=== PATIENT | male | born 1990 | race Caucasian/White ===

== ENCOUNTER 2024-02-01 10:15 | Outpatient (AMB) | payer MEDICAID, SELFPAY ==
--- NOTE | 2024-02-01 10:32 | ORTHONT_ITS ---
Vital signs 02/01/24 10:33 Height 1.8 m Height Method Stated Weight 78.528 kg Weight Measurement Method Standing Scale BMI 24.2 BP 124/72 Blood Pressure Source Automatic Cuff Blood Pressure Location Right Upper Arm Position Sitting Respiration 18 Pulse 54 L Pulse Source Monitor Temp 98.0 F Temp Source Temporal Artery Scan Pulse Oximetry (%) 98 Oxygen Delivery Method Room Air Med/Allergies Allergies & Medications Allergies No Known Drug Allergies Allergy (Verified 02/01/24 10:33) Medication Reconciliation cyclobenzaprine 10 mg tablet 10 mg PO HS 10/22/23 [History Confirmed 02/01/24] Subjective Visit Visit for: follow up visit and MRI (MRI RESULTS) Immunization / Flu Flu Vaccine in the Last 12 Months: No Flu Vaccine Exclusion Criteria: Refused by Patient History of Present Illness Chief complaint: MRI RESULTS FOLLOW UP Patient is a 33-year-old male who has had a left hip and knee and tibia pain. This has been ongoing for several years. He did have a broken tibia approximately 5 years ago That was fixed in the [facility]. He reports a lot of knee pain and points at the joint line as well as over the mid tibial incision. 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 He did not need any surgery Personal History Red flag PMH: other (specify) (CANABIS) Pain Pain level (0-10): 0 Pain duration: ALL DAY Pain location: inside (medial) Pain quality: sharp, aching and burning Pain timing: night, increases with activity and stairs Associated signs & symptoms: stiffness Ambulatory data Ambulatory device: none Treatments Improvement with previous injections: No Improvement with PT: No Improvement with NSAIDS: no Review of Systems Review of Systems: All systems negative unless otherwise noted in HPI. Exam Exam Patient is in no acute distress and is cooperative with the examination today. Patient has a normal mood and affect. Breathing is nonlabored. In no respiratory distress. Bilateral extremities were evaluated and demonstrates sensation intact to light touch. Palpable pedal pulses are present. No significant edema is present. Left hip demonstrates flexion 90 degrees internal rotation 20 to 30 degrees respectively. He has pain with internal rotation Left knee demonstrates tenderness palpation medially and laterally at the joint line. He is also tender to palpation over the mid tibial incision. 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 The left knee also demonstrates arthritis. He is actually also exquisitely tender over multiple screw holes along his tibia. Several of his screw lengths are quite long. Assessment and Plan Problem List (1) Perthes disease: Status: Acute Plan: Patient is a 33-year-old male with left hip pain and history of [place] these. His motion appears to be good. He also had a tibial nail placed with several long screws. We Discussed hardware removal. Patient has a meniscus tear that was read by radiologist. It is a little hard to see due to the metal artifact based on MRI. We will start with a cortisone injection. This been ongoing for quite a while. He is also tried physical therapy extensively. We discussed that this fails we can consider arthroscopic meniscectomy. I would also likely remove one of his screws on the distalmost aspect of his incision as this is significantly bothering him as well and is symptomatic (2) Pain in left knee: Status: Acute Office Procedures GNS Level of Care Nursing/Assessment Patient Status: Established Patient Nursing Assessment/Reassesment: Medication Reconciliation, Update PMH in EMR and Vital Signs Coordination of Care: Complex Care and Chronic Disease 1-5, Education Complex Pt/Fam, Consent,records obtained, informed consent, Results/Orders obtained and Staff clarify orders Established Patient Charge Established Patient Point Assignment: 95 Established Patient Point Charge: EP Level 3 (80-115) Surgical Proc/IM SQ injection Major Surgical Procedure: Yes (KNEE INJECTION ) Medication Given Medication Given Medication Given: Yes Documented Dose Given: 4 Route: Infiitration Medication Given Medication Given Medication Given: Yes Documented Dose Given: 1 Route: Infiitration Office Meds Xylocaine 10 mg/mL (1 %) injection solution Performing Provider: Sadi Rivas MD Performing Location: [facility] Administered by: Sadi Rivas MD on 02/01/24 10:59 Dose Route Admin Location Dispensed Lot Number Expiration Date [facility] Art History Instructor 20 mL Infiltration 20 mL [id number] [employer] triamcinolone acetonide 40 mg/mL suspension for injection Performing Provider: Sadi Rivas MD Performing Location: [facility] Administered by: Sadi Rivas MD on 02/01/24 10:59 Dose Route Admin Location Dispensed Lot Number Expiration Date [facility] Art History Instructor 40 mg intra-articular 1 mL [id number] [employer] Past Medical History Past Medical History Have you ever been diagnosed with any of the following: Respiratory Problems Smoking: Yes (marijuana) Smoking Exposure: Yes Tobacco Use: No
[2024-02-01 10:33] VITALS: BP 124/72; PULSE 54; RESP 18; TEMP 36.7; O2SAT 98; BMI 24.2
== END 2024-02-01 10:46 | disposition home or self-care (01) ==
LOC: HODSRG 10:15
PROVIDERS: PCP Physician Assistant; Referring Provider Physician Assistant; Supervising Provider Orthopaedic Surgery Adult Reconstructive Orthopaedic Surgery; Visit Provider Orthopaedic Surgery Adult Reconstructive Orthopaedic Surgery
DX: M91.10 Juvenile osteochondrosis of head of femur [Legg-Calve-Perthes], unspecified leg (principal); M25.562 Pain in left knee
CPT/HCPCS: 99213; J3301; J3490; G0463

== ENCOUNTER 2024-03-31 13:42 | Outpatient (AMB) | payer MEDICAID, SELFPAY ==
[2024-03-31 14:16] VITALS: BP 112/69; PULSE 71; RESP 18; TEMP 36.4; O2SAT 96; BMI 23.5
--- NOTE | 2024-03-31 14:16 | ORTHONT_ITS ---
Vital signs 03/31/24 14:16 Height 1.8 m Height Method Stated Weight 76.26 kg Weight Measurement Method Standing Scale BMI 23.5 BP 112/69 Blood Pressure Source Automatic Cuff Blood Pressure Location Right Upper Arm Position Sitting Respiration 18 Pulse 71 Pulse Source Monitor Temp 97.6 F Temp Source Temporal Artery Scan Pulse Oximetry (%) 96 Oxygen Delivery Method Room Air Med/Allergies Allergies & Medications Allergies No Known Drug Allergies Allergy (Verified 03/31/24 14:17) Medication Reconciliation cyclobenzaprine 10 mg tablet 10 mg PO HS 10/22/23 [History Confirmed 03/31/24] Subjective Visit Visit for: follow up visit and knee Immunization / Flu Flu Vaccine in the Last 12 Months: No Flu Vaccine Exclusion Criteria: No Exclusion Criteria History of Present Illness Chief complaint: LEFT KNEE PAIN Patient is a 33-year-old male who has had a left hip and knee and tibia pain. This has been ongoing for several years. He did have a broken tibia approximately 5 years ago That was fixed in the [facility]. He reports a lot of knee pain and points at the joint line as well as over the mid tibial incision. 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 He did not need any surgery Personal History Red flag PMH: other (specify) (CANABIS) Pain Pain level (0-10): 8 Pain duration: ALL DAY Pain location: anterior Pain quality: sharp, dull and aching Pain timing: night, increases with activity and stairs Associated signs & symptoms: stiffness Ambulatory data Ambulatory device: none Treatments Improvement with previous injections: No Improvement with PT: No Improvement with NSAIDS: n/a Review of Systems Review of Systems: All systems negative unless otherwise noted in HPI. Exam Exam Patient is in no acute distress and is cooperative with the examination today. Patient has a normal mood and affect. Breathing is nonlabored. In no respiratory distress. Bilateral extremities were evaluated and demonstrates sensation intact to light touch. Palpable pedal pulses are present. No significant edema is present. Left hip demonstrates flexion 90 degrees internal rotation 20 to 30 degrees respectively. He has pain with internal rotation Left knee demonstrates tenderness palpation medially and laterally at the joint line. He is also tender to palpation over the mid tibial incision. 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 The left knee also demonstrates arthritis. He is actually also exquisitely tender over multiple screw holes along his tibia. Several of his screw lengths are quite long. Assessment and Plan Problem List (1) Perthes disease: Status: Acute Plan: Patient is a 33-year-old male with left hip pain and history of [place] these. His motion appears to be good. He also had a tibial nail placed with several long screws. We Discussed hardware removal. Patient has a meniscus tear that was read by radiologist. It is a little hard to see due to the metal artifact based on MRI. The patient is doing well with cortisone injections and he would like a repeat 1 today. He is going on a trip soon and thinks he would benefit from this Recommend knee cortisone injection as patient would like to proceed with conservative treatment at this time. The risks and benefits of the procedure were reviewed with the patient and patient gave verbal consent to continue with the procedure. Procedure: performed by Dr. Rivas Using sterile technique the left knee was thoroughly prepped with alcohol, and approximately 1 cc of Kenalog 40 mg/mL and 4 cc of 1% lidocaine was injected without resistance into the medial tibial femoral joint space. The patient tolerated the procedure. (2) Pain in left knee: Status: Acute Office Procedures GNS Level of Care Nursing/Assessment Patient Status: Established Patient Nursing Assessment/Reassesment: Medication Reconciliation, Update PMH in EMR and Vital Signs Coordination of Care: Complex Care and Chronic Disease 1-5, Education Complex Pt/Fam, Consent,records obtained, informed consent, Results/Orders obtained and Staff clarify orders Established Patient Charge Established Patient Point Assignment: 95 Established Patient Point Charge: EP Level 3 (80-115) Surgical Proc/IM SQ injection Major Surgical Procedure: Yes (KNEE INJECTION) Medication Given Medication Given Medication Given: Yes Documented Dose Given: 4 Route: Infiitration Medication Given Medication Given Medication Given: Yes Documented Dose Given: 4 Route: Infiitration Medication Given Medication Given Medication Given: Yes Documented Dose Given: 1 Route: Infiitration Medication Given Medication Given Medication Given: Yes Documented Dose Given: 1 Route: Infiitration Office Meds Xylocaine 10 mg/mL (1 %) injection solution Performing Provider: Sadi Rivas MD Performing Location: [facility] Administered by: Sadi Rivas MD on 03/31/24 15:39 Dose Route Admin Location Dispensed Lot Number Expiration Date [facility] [employer] 20 mL Infiltration 20 mL [id number] 02/03/27 00676-652-80 [employer] Xylocaine 10 mg/mL (1 %) injection solution Performing Provider: Sadi Rivas MD Performing Location: [facility] Administered by: Sadi Rivas MD on 03/31/24 15:10 Dose Route Admin Location Dispensed Lot Number Expiration Date [facility] [employer] 20 mL Infiltration 20 mL [id number] 02/03/27 21635-305-97 [employer] K[employer]I triamcinolone acetonide 40 mg/mL suspension for injection Performing Provider: Sadi Rivas MD Performing Location: [facility] Administered by: Sadi Rivas MD on 03/31/24 15:39 Dose Route Admin Location Dispensed Lot Number Expiration Date [facility] [employer] 40 mg Infiltration 1 mL [id number] 01/03/26 [address]-7 [employer] triamcinolone acetonide 40 mg/mL suspension for injection Performing Provider: Sadi Rivas MD Performing Location: [facility] Administered by: Sadi Rivas MD on 03/31/24 15:39 Dose Route Admin Location Dispensed Lot Number Expiration Date [facility] [employer] 40 mg Infiltration 1 mL [id number] 01/03/26 [address]-9 [employer] Past Medical History Past Medical History Have you ever been diagnosed with any of the following: Respiratory Problems Smoking: Yes (marijuana) Smoking Exposure: Yes Tobacco Use: No
== END 2024-03-31 15:02 | disposition home or self-care (01) ==
LOC: HODSRG 13:42
PROVIDERS: PCP Physician Assistant; Referring Provider Physician Assistant; Supervising Provider Orthopaedic Surgery Adult Reconstructive Orthopaedic Surgery; Visit Provider Orthopaedic Surgery Adult Reconstructive Orthopaedic Surgery
DX: M91.10 Juvenile osteochondrosis of head of femur [Legg-Calve-Perthes], unspecified leg (principal); M25.552 Pain in left hip; M25.562 Pain in left knee
CPT/HCPCS: 20610; 99213; J3301; J3490; G0463

== ENCOUNTER 2024-11-03 09:51 | Outpatient (AMB) | payer MEDICAID, SELFPAY ==
[2024-11-03 10:01] VITALS: BP 121/76; PULSE 61; RESP 18; TEMP 35.9; O2SAT 99; BMI 28.6
--- NOTE | 2024-11-03 10:01 | PD.ORTHCLVIS ---
Vital signs 11/03/24 10:01 Height 1.8 m Height Method Stated Weight 92.788 kg Weight Measurement Method Standing Scale BMI 28.6 BP 121/76 Blood Pressure Source Automatic Cuff Blood Pressure Location Left Upper Arm Position Sitting Respiration 18 Pulse 61 Pulse Source Monitor Temp 96.7 F L Temp Source Temporal Artery Scan Pulse Oximetry (%) 99 Oxygen Delivery Method Room Air Med/Allergies Allergies & Medications Allergies No Known Drug Allergies Allergy (Verified 11/03/24 10:02) Medication Reconciliation cyclobenzaprine 10 mg tablet 10 mg PO HS 10/22/23 [History Confirmed 11/03/24] Exam Exam Patient is in no acute distress and is cooperative with the examination today. Patient has a normal mood and affect. Breathing is nonlabored. In no respiratory distress. Bilateral extremities were evaluated and demonstrates sensation intact to light touch. Palpable pedal pulses are present. No significant edema is present. Left hip demonstrates flexion 90 degrees internal rotation 20 to 30 degrees respectively. He has pain with internal rotation Left knee demonstrates tenderness palpation medially and laterally at the joint line. He is also tender to palpation over the mid tibial incision. 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 The left knee also demonstrates arthritis. He is actually also exquisitely tender over multiple screw holes along his tibia. Several of his screw lengths are quite long. Assessment and Plan Problem List (1) Perthes disease: Status: Acute Plan: Patient is a 33-year-old male with left hip pain and history of [place] these. His motion appears to be good. He also had a tibial nail placed with several long screws. We Discussed hardware removal. We will get a CT scan of the tibia to better evaluate his hardware. I do think that the tibial screw is likely buried in bone which may make it difficult. Also would evaluate the fracture union before pulling the hardware (2) Pain in left knee: Status: Acute Office Procedures GNS Level of Care Nursing/Assessment Patient Status: Established Patient Nursing Assessment/Reassesment: Medication Reconciliation, Update PMH in EMR and Vital Signs Coordination of Care: Complex Care and Chronic Disease 1-5, Education Complex Pt/Fam, Consent,records obtained, informed consent, Results/Orders obtained and Staff clarify orders Established Patient Charge Established Patient Point Assignment: 95 Established Patient Point Charge: EP Level 3 (80-115) EMILIANO Intake Visit Data Collection New Patient or Established: Established Patient (seen at [facility] within 3 years) Reason for Visit:: LEFT KNEE PAIN Seen by Clinical Staff ONLY (RN/MA): No Sales Communications Manager Required: No PCP or OBGYN visit in last 3 months: Yes Hx Now: No Do You Feel Safe at Home: Yes Authorities Contacted: N/A Questionairres Past Medical History Past Medical History Have you ever been diagnosed with any of the following: Respiratory Problems Smoking: Yes (marijuana) Smoking Exposure: Yes Tobacco Use: No Subjective Visit Visit for: follow up visit and knee (LEFT KNEE ) Immunization / Flu Flu Vaccine in the Last 12 Months: No Flu Vaccine Exclusion Criteria: Refused by Patient History of Present Illness Chief complaint: right tibia pain Patient is a 33-year-old male who has had a left hip and knee and tibia pain. This has been ongoing for several years. He did have a broken tibia approximately 5 years ago That was fixed in the [facility]. 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 He did not need any surgery Personal History Red flag PMH: none Pain Pain level (0-10): 7 Pain location: anterior Pain quality: sharp and burning Pain timing: night and increases with activity Associated signs & symptoms: stiffness Ambulatory data Ambulatory device: none Walking distance (minutes): 1 Treatments Number of previous injections: 1 Improvement with previous injections: No Number of Physical Therapy sessions: 5 Improvement with PT: No Improvement with NSAIDS: n/a Review of Systems Review of Systems: All systems negative unless otherwise noted in HPI.
== END 2024-11-03 10:16 | disposition home or self-care (01) ==
LOC: HODSRG 09:51
PROVIDERS: PCP Physician Assistant; Referring Provider Physician Assistant; Supervising Provider Orthopaedic Surgery Adult Reconstructive Orthopaedic Surgery; Visit Provider Orthopaedic Surgery Adult Reconstructive Orthopaedic Surgery
DX: M91.10 Juvenile osteochondrosis of head of femur [Legg-Calve-Perthes], unspecified leg (principal); M25.552 Pain in left hip; M25.562 Pain in left knee
CPT/HCPCS: 99213; G0463

== ENCOUNTER → 2024-12-28 | Outpatient (CLI) | payer MEDICAID, SELFPAY ==
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
== END | disposition home or self-care (01) ==
LOC: CCTX 07:49
PROVIDERS: PCP Physician Assistant; Referring Provider Orthopaedic Surgery Adult Reconstructive Orthopaedic Surgery; Visit Provider Orthopaedic Surgery Adult Reconstructive Orthopaedic Surgery
DX: M25.562 Pain in left knee (principal); Z87.81 Personal history of (healed) traumatic fracture
CPT/HCPCS: 73700

== ENCOUNTER 2025-01-04 08:13 | Outpatient (AMB) | payer MEDICAID, SELFPAY ==
--- NOTE | 2025-01-04 08:29 | ORTHONT_ITS ---
Vital signs 01/04/25 08:31 Height 1.8 m Height Method Stated Weight 87.685 kg Weight Measurement Method Standing Scale BMI 27.0 BP 149/80 H Blood Pressure Source Automatic Cuff Blood Pressure Location Left Upper Arm Position Sitting Respiration 18 Pulse 54 L Pulse Source Monitor Temp 97.9 F Temp Source Temporal Artery Scan Pulse Oximetry (%) 98 Oxygen Delivery Method Room Air Med/Allergies Allergies & Medications Allergies No Known Drug Allergies Allergy (Verified 01/04/25 08:32) Medication Reconciliation cyclobenzaprine 10 mg tablet 10 mg PO HS 10/22/23 [History Confirmed 01/04/25] Exam Exam Patient is in no acute distress and is cooperative with the examination today. Patient has a normal mood and affect. Breathing is nonlabored. In no respiratory distress. Bilateral extremities were evaluated and demonstrates sensation intact to light touch. Palpable pedal pulses are present. No significant edema is present. Left hip demonstrates flexion 90 degrees internal rotation 20 to 30 degrees respectively. He has pain with internal rotation Left knee demonstrates tenderness palpation medially and laterally at the joint line. He is also tender to palpation over the mid tibial incision. 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 The left knee also demonstrates arthritis. He is actually also exquisitely tender over multiple screw holes along his tibia. Several of his screw lengths are quite long. Assessment and Plan Problem List (1) Pain in left knee: Status: Acute (2) Perthes disease: Status: Acute Plan: Patient is a 33-year-old male with left hip pain and history of [place] these. His motion appears to be good. He also had a tibial nail placed with several long screws. We Discussed hardware removal. We discussed that we would remove the screws in particular as removing the tibial nail to be quite a challenge [place] I also discussed with him that there is a possibility we are unable to remove the screws as [place] and we may not have the proper equipment to remove it. The patient understands the risk and would like to proceed with surgery. Discussed the risk of infection, and fracture in particular as well we also discussed damage to nerves and vessels given the location of this. The patient understands and would like to proceed Office Procedures GNS Level of Care Nursing/Assessment Patient Status: Established Patient Nursing Assessment/Reassesment: Medication Reconciliation, Update PMH in EMR and Vital Signs Coordination of Care: Complex Care and Chronic Disease 1-5, Education Complex Pt/Fam, Consent,records obtained, informed consent, Results/Orders obtained and Staff clarify orders Established Patient Charge Established Patient Point Assignment: 95 Established Patient Point Charge: EP Level 3 (80-115) MA Intake Visit Data Collection New Patient or Established: Established Patient (seen at [facility] within 3 years) Reason for Visit:: LEFT KNEE PAIN Seen by Clinical Staff ONLY (RN/MA): No Computing Machine Operator Required: No PCP or OBGYN visit in last 3 months: Yes Hx Now: No Do You Feel Safe at Home: Yes Authorities Contacted: N/A Questionairres Past Medical History Past Medical History Have you ever been diagnosed with any of the following: Respiratory Problems Smoking: Yes (marijuana) Smoking Exposure: Yes Tobacco Use: No Subjective Visit Visit for: follow up visit and knee (LEFT KNEE ) Immunization / Flu Flu Vaccine in the Last 12 Months: No Flu Vaccine Exclusion Criteria: Refused by Patient History of Present Illness Chief complaint: right tibia pain Patient is a 33-year-old male who has had a left hip and knee and tibia pain. This has been ongoing for several years. He did have a broken tibia approximately 5 years ago That was fixed in the [facility]. 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 He did not need any surgery. For his left tibial pain. He is extremely sensitive over the screws and like to get the hardware removed. Both the distal and proximal screws bother him. He has tried extensive physical therapy. Personal History Red flag PMH: none Pain Pain level (0-10): 7 Pain location: anterior Pain quality: sharp and burning Pain timing: night and increases with activity Associated signs & symptoms: stiffness Ambulatory data Ambulatory device: none Walking distance (minutes): 1 Treatments Number of previous injections: 1 Improvement with previous injections: No Number of Physical Therapy sessions: 5 Improvement with PT: No Improvement with NSAIDS: n/a Review of Systems Review of Systems: All systems negative unless otherwise noted in HPI.
[2025-01-04 08:31] VITALS: BP 149/80; PULSE 54; RESP 18; TEMP 36.6; O2SAT 98; BMI 27.0
== END 2025-01-04 08:40 | disposition home or self-care (01) ==
PROVIDERS: PCP Physician Assistant; Referring Provider Physician Assistant; Supervising Provider Orthopaedic Surgery Adult Reconstructive Orthopaedic Surgery; Visit Provider Orthopaedic Surgery Adult Reconstructive Orthopaedic Surgery
DX: M25.562 Pain in left knee (principal); M91.10 Juvenile osteochondrosis of head of femur [Legg-Calve-Perthes], unspecified leg; M25.552 Pain in left hip
CPT/HCPCS: 99213; G0463

== ENCOUNTER 2025-01-10 08:15 | Day surgery (SDC) | payer MEDICAID, SELFPAY ==
[2025-01-09 08:55] VITALS: BMI 27.1
[2025-01-09 10:22] LABS: Basophils # (Auto) 0.1 Thou/mm3 (0.0-0.2); Basophils % (Auto) 1 % (0-2.5); Eosinophils # (Auto) 0.1 Thou/mm3 (0.0-0.5); Eosinophils % (Auto) 2 % (0-10); Hematocrit 42.3 % (41.0-53.0); Hemoglobin 14.6 g/dL (13.5-16.0); Immature Granulocytes Auto 0.01 Thou/mm3 (0.00-0.00); Lymphocytes # (Auto) 1.9 Thou/mm3 (1.0-4.8); Lymphocytes % (Auto) 33 % (10-50); Mean Corpuscular HGB Conc 34.5 g/dl (31.0-37.0); Mean Corpuscular Hemoglobin 33.2 pg (25.0-35.0); Mean Corpuscular Volume 96 fL (80-100); Monocytes # (Auto) 0.5 Thou/mm3 (0.0-0.8); Monocytes % (Auto) 9 % (0-12); Neutrophils # (Auto) 3.3 Thou/mm3 (1.8-7.7); Neutrophils % (Auto) 56 % (37-80); Nucleated Red Blood Cell # 0.00 Thou/mm3 (0.00-0.00); Nucleated Red Blood Cell % 0 /100 WBC (0); Platelet Count 213 Thou/mm3 (140-440); RDW Standard Deviation 43.8 fL (35.1-43.9); Red Blood Count 4.40 Miln/mm3 (4.50-5.90); White Blood Count 5.9 Thou/mm3 (3.8-10.6)
[2025-01-09 10:29] LABS: Anion Gap 7 (7-16); BUN/Creatinine Ratio 10 Ratio (12-20); Blood Urea Nitrogen 9 mg/dL (9-23); Calcium 10.1 mg/dL (8.3-10.6); Carbon Dioxide 28.2 mMol/L (20.0-31.0); Chloride 109 mMol/L (98-107); Creatinine (Component) 0.9 mg/dL (0.6-1.3); Estimated Creatinine Clearance 120.9 mL/min (>60); Glucose 98 mg/dL (74-106); Osmolality,Calculated 285 (275-295); Potassium 5.0 mMol/L (3.4-5.1); Sodium 144 mMol/L (136-145); eGFR > 60 See Note
[2025-01-09 10:34] LABS: INR 1.0 (0.9-1.3); Partial Thromboplastin Time 28.8 Seconds (22.0-36.0); Prothrombin Time 11.0 Seconds (9.0-12.2)
[2025-01-10] VITALS (9 sets, daily range): BP systolic 124–159; BP diastolic 74–94; PULSE 12–97; RESP 12–20; TEMP 36.3–36.6; O2SAT 95–100; BMI 27.5
[2025-01-10] MEDS: RINGERS LACTATED 1000 ML 1,000 ML 20 ML IV (09:30)
[2025-01-10] MEDS: PREGABALIN 75 MG CAPSULE PO (09:30)
[2025-01-10] MEDS: ACETAMINOPHEN 325 MG TABLET 650 MG PO (09:30)
[2025-01-10] MEDS: MELOXICAM 7.5 MG TABLET PO (09:30)
--- NOTE | 2025-01-10 11:13 | ESOP_ITS ---
Date of Procedure 01/10/25 Pre Op Diagnosis left knee symptomatic hardware Post Op Diagnosis left knee symptomatic hardware Procedure left knee hardware removal Findings long screws, fracture union Procedure Description Indications: Patient is a 34-year-old male with symptomatic hardware. He is very tender over the screw sites. 2 of the screws were found to be on the long side. They protruding at least 2 cm out of the bone. We discussed the risk of infection, persistently symptomatic hardware, and that we would not remove the nail. In addition, we discussed other complications including damage to nerves and vessels as well as prior surgery in the future Procedure detail: The patient was prepped and draped in usual sterile fashion. A surgical timeout was performed. The 3 existing incisions, 1 proximal and 2 distal on the tibia were opened. This was incised further by further dissection. We used a [place] to ensure that we could see the entire screw head. He was found to be in torque type screw. We tried different screwdrivers until we were able to find one that fit in the head. We removed it by hand for all 3 screws. We then subsequently irrigated the wound. The screws were found to be extremely long on fluoroscopy. We ensured that all screws were removed and the wound was closed in the usual fashion with Vicryl, Monocryl, and Dermabond Anesthesia GETA Pathology / specimen None Pathology comment: none Estimated Blood Loss 150 Condition Stable Disposition same day Surgeon Sadi Rivas MD Surgical Staff Operation Date: 01/10/25 13:45 Case Staff Anesthesiologist: Norbert Miller RNjava j2ee software engineer: Saundra Sahu
--- NOTE | 2025-01-10 11:31 | SUR.PHASEI ---
1131: Pt. arrived with LMA in place, vitals stable, breathing unlabored, no signs of distress, x2 dermabond sites to lower left leg CDI, no active bleed noted, bilateral dorsalis pedis pulses strong and regular, cap refill to bilateral feet less than 3 seconds, report recieved from MD Miller and Prince JACOBS.
[2025-01-10] MEDS: ONDANSETRON INJ 2 MG/ML INJ 2 ML 4 MG IVP (11:37)
[2025-01-10] MEDS: HYDROmorphone INJ 2 MG/ML VIAL 0.5 MG IVP ×2 (11:42→11:58)
--- NOTE | 2025-01-10 11:48 | SUR.PHASEI ---
pt lying in gurney with eyes closed, breathing unlabored, dressing to left lower extremity clean, dry, and intact, VS stable, report from Petty JACOBS
--- NOTE | 2025-01-10 12:00 | SUR.PHASEI ---
pt tolerating ice chips without difficulty swallowing or n/v
--- NOTE | 2025-01-10 12:23 | SUR.PHASEII ---
report to Petty JACOBS
--- NOTE | 2025-01-10 12:55 | SUR.PHASEII ---
1255: Pt. AAOx4, vitals stable, breathing unlabored, no complaint of pain or nausea, x2 dermabond sites to the left lower extemity CDI, no active bleed noted, bilateral dorsalis pedis pulses strong and regular, bilateral cap refill less than 3 seconds, pt. tolerated sips of water well, pt. ambulated to wheelchair with steady gait and no assist, no complications. Gave discharge instructions to the pt. and his ride, both verbalized understanding and had no further questions. Pt. left with all personal belongings.
--- NOTE | 2025-01-10 13:30 | XR_ITS ---
Examination: Left lower leg 2 views Fluoroscopy Date and time: January 10, 2025 1139 hours INDICATIONS: Hardware removal FINDINGS: AP films x2 of the left tibia fibula Intramedullary amada Orthopedic fixation screws are no longer identified IMPRESSION: Orthopedic fixation screws have been removed
== END 2025-01-10 12:55 | disposition home or self-care (01) ==
PROVIDERS: PCP Physician Assistant; Referring Provider Orthopaedic Surgery Adult Reconstructive Orthopaedic Surgery; Visit Provider Orthopaedic Surgery Adult Reconstructive Orthopaedic Surgery
PROC: (CPT 20680; principal; 2025-01-10 13:30)
DX: T84.84XA Pain due to internal orthopedic prosthetic devices, implants and grafts, initial encounter (principal); Y83.8 Other surgical procedures as the cause of abnormal reaction of the patient, or of later complication, without mention of misadventure at the time of the procedure
CPT/HCPCS: 20680; 36415; 76000; 80048; 85025; 85610; 85730; A4217; J0690; J1100; J1171; J2405; J2704; J3010; J3490; J7120; J7999; A9270

== ENCOUNTER 2025-01-25 12:54 | Outpatient (AMB) | payer MEDICAID, SELFPAY ==
[2025-01-25 13:03] VITALS: BP 119/76; PULSE 67; RESP 18; TEMP 36.8; O2SAT 97; BMI 26.4
--- NOTE | 2025-01-25 13:03 | PD.ORTHCLVIS ---
Vital signs 01/25/25 13:03 Height 1.8 m Height Method Measured Weight 85.757 kg Weight Measurement Method Standing Scale BMI 26.4 BP 119/76 Blood Pressure Source Automatic Cuff Blood Pressure Location Left Upper Arm Position Sitting Respiration 18 Pulse 67 Pulse Source Monitor Temp 98.2 F Temp Source Temporal Artery Scan Pulse Oximetry (%) 97 Oxygen Delivery Method Room Air Med/Allergies Allergies & Medications Allergies No Known Drug Allergies Allergy (Verified 01/25/25 13:04) Medication Reconciliation hydrocodone 5 mg-acetaminophen 325 mg tablet 1 tab PO Q8H PRN pain #12 tabs 01/10/25 [Rx Confirmed 01/25/25] Exam Exam Patient is in no acute distress and is cooperative with the examination today. Patient has a normal mood and affect. Breathing is nonlabored. In no respiratory distress. Bilateral extremities were evaluated and demonstrates sensation intact to light touch. Palpable pedal pulses are present. No significant edema is present. Left hip demonstrates flexion 90 degrees internal rotation 20 to 30 degrees respectively. 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 The left knee also demonstrates arthritis. He is actually also exquisitely tender over multiple screw holes along his tibia. Several of his screw lengths are quite long. Assessment and Plan Problem List (1) Pain in left knee: Status: Acute Plan: Patient has painful hardware removed both his proximal and distal interlocks. He is very happy. (2) Perthes disease: Status: Acute Office Procedures GNS Level of Care Nursing/Assessment Patient Status: Established Patient Nursing Assessment/Reassesment: Medication Reconciliation, Orthostatic Vitals, Update PMH in EMR and Vital Signs Coordination of Care: Complex Care and Chronic Disease 1-5, Education Complex Pt/Fam, Consent,records obtained, informed consent, Results/Orders obtained and Staff clarify orders Established Patient Charge Established Patient Point Assignment: 105 Established Patient Point Charge: EP Level 3 (80-115) MA Intake Visit Data Collection New Patient or Established: Established Patient (seen at [facility] within 3 years) Reason for Visit:: F/U 2 WEEK POST OP Seen by Clinical Staff ONLY (RN/MA): No [employer] Required: No PCP or OBGYN visit in last 3 months: Yes Hx Now: No Do You Feel Safe at Home: Yes Authorities Contacted: N/A Questionairres Past Medical History Past Medical History Have you ever been diagnosed with any of the following: Neurological Problems Seizures: No Cardiology Problems Congestive Heart Failure: No Respiratory Problems Chronic Obstructive Pulmonary Disease (COPD): No Smoking: Yes (marijuana) Smoking Exposure: Yes Tobacco Use: No Genital/Urinary Problems Renal Disease: No Musculoskeletal Problems Fractures: Yes (Left lower leg) Endocrine Problems Diabetes Mellitus Type 1: No Diabetes Mellitus Type 2: No Other Problems Hospitalization: No Shingles: No Blood Transfusions: No Anesthesia Reactions: No Cancer: No Subjective Visit Visit for: follow up visit and post op #1 Immunization / Flu Flu Vaccine in the Last 12 Months: No Flu Vaccine Exclusion Criteria: Refused by Patient History of Present Illness Chief complaint: F/U 2 WEEK POST OP Patient is a 33-year-old male who has had a left hip and knee and tibia pain. He is status post removal of hardware. He reports he is doing well and is very happy Personal History Red flag PMH: none Pain Pain level (0-10): 7 Pain location: anterior Pain quality: sharp and burning Pain timing: night and increases with activity Associated signs & symptoms: stiffness Ambulatory data Ambulatory device: none Walking distance (minutes): 1 Treatments Number of previous injections: 1 Improvement with previous injections: No Number of Physical Therapy sessions: 5 Improvement with PT: No Improvement with NSAIDS: n/a Review of Systems Review of Systems: All systems negative unless otherwise noted in HPI.
== END 2025-01-25 13:12 | disposition home or self-care (01) ==
PROVIDERS: PCP Physician Assistant; Referring Provider Physician Assistant; Supervising Provider Orthopaedic Surgery Adult Reconstructive Orthopaedic Surgery; Visit Provider Orthopaedic Surgery Adult Reconstructive Orthopaedic Surgery
DX: M25.562 Pain in left knee (principal); M91.10 Juvenile osteochondrosis of head of femur [Legg-Calve-Perthes], unspecified leg
CPT/HCPCS: 99213; G0463